=== PATIENT | male | born 1960 | race Caucasian/White ===

== ENCOUNTER 2024-10-19 08:08 | Emergency (ER) | payer MEDICAID ==
[~2024-10-19] VITALS: Ht 182.9 cm; Wt 74.5 kg
[2024-10-19 08:26] LABS: BASOPHILS 0.6 % (0-2); EOSINOPHILS 0.8 % (0-6); HEMOGLOBIN 14.7 g/dL (12.0-18.0); LYMPHOCYTES 9.8 % (24-44); MCH 33.7 (27-36); MCHC 34.9 g/dl (30-36); MCV 96.4 fl (81-99); MONOCYTES 13.1 % (0-12); NEUTROPHILS 75.7 % (39-80); PLATELET COUNT 267 K/uL (140-440); RBC 4.36 M/ul (4.3-5.7); RDW 13.6 (10.5-15.0)
[2024-10-19] MEDS ORDERED: SODIUM CHLORIDE 0.9% 500 ML IV ONE (08:30)
[2024-10-19] MEDS ORDERED: HYDROmorphone HCL 1 MG/ML SYR IV PRN (08:30)
[2024-10-19 08:43] LABS: ALBUMIN 3.9 g/dL (3.4-5.0); ALBUMIN/GLOBULIN RATIO 0.93 (1.1-2.4); ANION GAP 13.9 (7-21); BILIRUBIN, TOTAL 0.8 mg/dL (0.2-1.0); BUN/CREATININE RATIO 7.31 (6.0-28.6); CALCIUM 9.2 mg/dL (8.5-10.1); CREATININE, SERUM 1.23 mg/dL (0.70-1.30); POTASSIUM 3.9 mmol/L (3.5-5.1); PROTEIN, TOTAL 8.1 g/dL (6.4-8.2)
[2024-10-19] MEDS ORDERED: KETOROLAC TROMETHAMINE 30 MG/ML VIAL IV ONE (08:45)
[2024-10-19] MEDS ORDERED: SODIUM CHLORIDE 0.9% 1,000 ML IV ONE (11:30)
[2024-10-19 12:15] LABS: BILIRUBIN, URINE NEGATIVE (negative); BLOOD/HGB, URINE NEGATIVE (Negative); KETONE, URINE NEGATIVE (Negative); LEUK ESTERASE, URINE NEGATIVE (negative); NITRITE, URINE NEGATIVE (negative)
[2024-10-19] MEDS ORDERED: HYDROCODONE/ACETA 5/325 TAB PO ONE (12:30)
[2024-10-19] MEDS ORDERED: HYDROCODON-ACE1 EA11 PO (12:59)
[2024-10-19 13:15] VITALS: BP 123/92
--- NOTE | 2024-10-19 22:48 | EKG ---
[facility] [address] [facility] [address] [place] [address] Signed Normal sinus rhythm Minimal voltage criteria for LVH, may be normal variant ( Sokolow-Candelaria ) Borderline ECG No previous ECGs available Confirmed by Manjula Mattson MD () on 10/19/2024 10:48:17 PM Electronically Signed By: MANJULA MATTSON MD 10/19/24 2248 PATIENT NAME: KELTON ANDREW Electrocardiogram DATE OF : 64 PHYSICIAN: MANJULA MATTSON MD REPORT #: [id number] REPORT IS CONFIDENTIAL AND NOT TO BE RELEASED WITHOUT AUTHORIZATION
== END 2024-10-19 13:15 | disposition home or self-care (01) ==
LOC: ED 08:08
PROVIDERS: Emergency Medicine
DX: S22.41XA Multiple fractures of ribs, right side, initial encounter for closed fracture (principal); W19.XXXA Unspecified fall, initial encounter
CPT/HCPCS: 36415; 71045; 71250; 74177; 80053; 81003; 83690; 85025; 93005; 93010; 96375; 96376; 99284-25; J1171; J1885; J7030; J7040; Q9967